=== PATIENT | male | born 1985 | race African-American/Black ===

== ENCOUNTER 2016-11-04 16:46 | Emergency (ER) | payer SELFPAY ==
[~2016-11-04] VITALS: Ht 170.2 cm; Wt 90.7 kg
[~2016-11-04 16:46] MED LIST: FAMO20TA5 PO; HYDR-971 PO; NAPR375T3 PO; ONDA4TAB10 SL; ONDA4TAB7 PO
[2016-11-04 17:05] VITALS: BP 165/80
[2016-11-04] MEDS ORDERED: IV NORMAL SALINE 1000ML BAG 1,000 ML IV SCH (17:21)
[2016-11-04] MEDS ORDERED: ONDANSETRON PF 4 MG/2 ML VIAL. IV ONE (17:30)
[2016-11-04] MEDS ORDERED: FAMOTIDINE 20 MG/2 ML VIAL IVP ONE (17:30)
[2016-11-04 17:58] LABS: BASO # 0.1 x10^3/uL (0.0-0.2); BASO % 1 % (0-3); EOS % 0 % (0-3); HEMOGLOBIN 15.7 g/dL (13.0-17.5); LYMPH # 0.5 x10^3/uL (1.0-4.8); LYMPH % 6 % (24-48); MEAN CORPUSCULAR HEMOGLOBIN 30 pg (25-35); MEAN CORPUSCULAR HGB CONC 34 g/dL (31-37); MEAN CORPUSCULAR VOLUME 89 fL (79-100); MONO % 5 % (0-9); NEUT % 88 % (31-73); PLATELET COUNT 207 x10^3/uL (140-400); RED BLOOD COUNT 5.27 x10^6/uL (4.30-5.70); RED CELL DISTRIBUTION WIDTH 14.3 % (11.5-14.5); WHITE BLOOD COUNT 9.4 x10^3/uL (4.0-11.0)
[2016-11-04 18:08] LABS: CALCIUM 9.7 mg/dL (8.5-10.1); CREATININE 1.2 mg/dL (0.7-1.3)
[2016-11-04 18:14] LABS: ALBUMIN 4.3 g/dL (3.4-5.0); TOTAL BILIRUBIN 1.2 mg/dL (0.2-1.0); TOTAL PROTEIN 8.4 g/dL (6.4-8.2)
--- NOTE | 2016-11-04 19:03 | PHYS DOC ---
Past Medical History Past Medical History: No Pertinent History Past Surgical History: No Surgical History Alcohol Use: Occasionally Drug Use: None Adult General Chief Complaint Chief Complaint: ABDOMINAL PAIN HPI HPI Patient is a 31 year old male who presents with complaint of nausea, vomiting, diarrhea, and abdominal pain that started earlier this morning. Patient states that approximately 1:00 in the morning he started having bad symptoms. Patient states that he thinks he may have eaten bad food last night before bed. Patient denies any fevers. Patient has had too numerous to count episodes of vomiting, dry heaves, and loose stools. Patient denies any blood in his stool or in his vomit. Patient states that he is having generalized dull pain in his abdomen. Patient denies any localized pain. Patient came to the emergency department as he has not been able to tolerate solids or liquids at home. Patient denies any significant past medical history. Review of Systems Review of Systems Constitutional: Denies fever or chills [] Eyes: Denies change in visual acuity, redness, or eye pain [] HENT: Denies nasal congestion or sore throat [] Respiratory: Denies cough or shortness of breath [] Cardiovascular: No additional information not addressed in HPI [] GI: Abdominal pain, nausea, vomiting, diarrhea [] : Denies dysuria or hematuria [] Musculoskeletal: Denies back pain or joint pain [] Integument: Denies rash or skin lesions [] Neurologic: Denies headache, focal weakness or sensory changes [] Current Medications Current Medications Current Medications Medications (Trade) Dose Ordered Sig/Jackson Start Time Stop Time Status Last Admin Dose Admin Famotidine (Pepcid) 20 mg 1X ONCE 11/04/16 17:30 11/04/16 17:31 DC 11/04/16 17:44 20 MG Ondansetron HCl (Zofran) 4 mg 1X ONCE 11/04/16 17:30 11/04/16 17:31 DC 11/04/16 17:44 4 MG Sodium Chloride (Iv Sodium Chloride 0.9% 1000ml Bag) 1,000 ml @ 1,000 mls/hr Q1H 11/04/16 17:21 11/04/16 18:20 DC 11/04/16 17:44 1,000 MLS/HR Allergies Allergies Allergies Coded Allergies Type Severity Reaction Last Updated Verified Penicillins Allergy Intermediate swelling 05/12/16 Yes banana Allergy Intermediate 05/12/16 Yes Physical Exam Physical Exam Constitutional: Alert, afebrile, appears ill. [] HENT: Normocephalic, atraumatic, bilateral external ears normal, oropharynx moist, no oral exudates, nose normal. [] Eyes: PERRLA, EOMI, conjunctiva normal, no discharge. [] Neck: Normal range of motion, no tenderness, supple, no stridor. [] Cardiovascular:Heart rate regular rhythm, no murmur [] Lungs & Thorax: Bilateral breath sounds clear to auscultation [] Abdomen: Bowel sounds normal, soft, generalized tenderness palpation, no guarding or rebound tenderness, no masses, no pulsatile masses. [] Skin: Warm, dry, no erythema, no rash. [] Back: No tenderness, no CVA tenderness. [] Extremities: No tenderness, no cyanosis, no clubbing, ROM intact, no edema. [] Neurologic: Alert and oriented X 3, normal motor function, normal sensory function, no focal deficits noted. [] Current Patient Data Vital Signs Vital Signs Date Time Temp Pulse Resp B/P Pulse Ox O2 Delivery O2 Flow Rate FiO2 11/04/16 17:05 98.1 70 32 165/80 99 Room Air 98.1 Lab Values Laboratory Tests Test 11/04/16 17:45 11/04/16 19:00 White Blood Count 9.4x10^3/uL (4.0-11.0) Red Blood Count 5.27x10^6/uL (4.30-5.70) Hemoglobin 15.7g/dL (13.0-17.5) Hematocrit 47.0% (39.0-53.0) Mean Corpuscular Volume 89fL (79-100) Mean Corpuscular Hemoglobin 30pg (25-35) Mean Corpuscular Hemoglobin Concent 34g/dL (31-37) Red Cell Distribution Width 14.3% (11.5-14.5) Platelet Count 207x10^3/uL (140-400) Neutrophils (%) (Auto) 88% (31-73) H Lymphocytes (%) (Auto) 6% (24-48) L Monocytes (%) (Auto) 5% (0-9) Eosinophils (%) (Auto) 0% (0-3) Basophils (%) (Auto) 1% (0-3) Neutrophils # (Auto) 8.3x10^3uL (1.8-7.7) H Lymphocytes # (Auto) 0.5x10^3/uL (1.0-4.8) L Monocytes # (Auto) 0.4x10^3/uL (0.0-1.1) Eosinophils # (Auto) 0.0x10^3/uL (0.0-0.7) Basophils # (Auto) 0.1x10^3/uL (0.0-0.2) Segmented Neutrophils % 86% (35-66) H Lymphocytes % 8% (24-48) L Monocytes % 6% (0-10) Platelet Estimate Adequate (ADEQUATE) Large Platelets Occ Ovalocytes Occ Stomatocytes Occ Sodium Level 143mmol/L (136-145) Potassium Level 4.0mmol/L (3.5-5.1) Chloride Level 99mmol/L (98-107) Carbon Dioxide Level 29mmol/L (21-32) Anion Gap 15 (6-14) H Blood Urea Nitrogen 14mg/dL (8-26) Creatinine 1.2mg/dL (0.7-1.3) Estimated GFR (Cockcroft-Gault) 86.0 BUN/Creatinine Ratio 12 (6-20) Glucose Level 128mg/dL (70-99) H Calcium Level 9.7mg/dL (8.5-10.1) Total Bilirubin 1.2mg/dL (0.2-1.0) H Aspartate Amino Transferase (AST) 26U/L (15-37) Alanine Aminotransferase (ALT) 46U/L (16-63) Alkaline Phosphatase 50U/L (46-116) Total Protein 8.4g/dL (6.4-8.2) H Albumin 4.3g/dL (3.4-5.0) Albumin/Globulin Ratio 1.0 (1.0-1.7) Lipase 76U/L (73-393) Urine Color Yellow Urine Clarity Clear Urine pH 6.5 Urine Specific Lowry >=1.030 Urine Protein 100mg/dL (NEG-TRACE) Urine Glucose (UA) Negativemg/dL (NEG) Urine Ketones (Stick) Negativemg/dL (NEG) Urine Blood Trace (NEG) Urine Nitrite Negative (NEG) Urine Bilirubin Negative (NEG) Urine Urobilinogen Dipstick 0.2mg/dL (0.2 mg/dL) Urine Leukocyte Esterase Negative (NEG) Urine RBC 3-5/HPF (0-2) Urine WBC 1-4/HPF (0-4) Urine Squamous Epithelial Cells Occ/LPF Urine Amorphous Sediment Present/HPF Urine Bacteria 0/HPF (0-FEW) Urine Mucus Mod/LPF Laboratory Tests 11/04/16 17:45 Laboratory Tests 11/04/16 17:45 EKG EKG Not performed [] Radiology/Procedures Radiology/Procedures Not performed [] Course & Med Decision Making Course & Med Decision Making Pertinent Labs and Imaging studies reviewed. (See chart for details) Patient was given IV fluids, Pepcid, and Zofran. On reevaluation, patient states his symptoms have improved at this time. Patient's symptoms appear consistent with likely gastroenteritis. The patient will be treated as outpatient with Zofran and Pepcid. Advised oral hydration with Pedialyte and to advance his diet as tolerated. Advised follow-up in 3-5 days a primary doctor if symptoms are not improving and return to emergency department for any worsening symptoms. Patient voiced understanding and in agreement with treatment plan. Dragon Disclaimer Dragon Disclaimer This electronic medical record was generated, in whole or in part, using a voice recognition dictation system. Departure Departure Impression: Primary Impression: Nausea & vomiting Additional Impression: Diarrhea Disposition: 01 HOME, SELF-CARE Condition: IMPROVED Referrals: NO PCP (PCP) Patient Instructions: Diarrhea, Nausea and Vomiting Additional Instructions: Follow-up with your primary doctor in the next 3-5 days if symptoms are not improving. Return to the emergency department for any worsening symptoms. Scripts Famotidine (Pepcid)20 Mg [id number] Mg PO BID #30 TAB Prov:ANATOLY MORTON MD 11/04/16 Ondansetron (Zofran Odt)4 Mg Tab.rapdis4 Mg PO Q8HRS PRN NAUSEA/VOMITING #15 TAB Prov:ANATOLY MORTON MD 11/04/16 Problem Qualifiers Primary Impression: Nausea & vomiting Vomiting type: unspecified Vomiting Intractability: non-intractable Qualified Code: R11.2 - Nausea with vomiting, unspecified Additional Impression: Diarrhea Diarrhea type: presumed infectious Qualified Code: A09 - Infectious gastroenteritis and colitis, unspecified ANATOLY MORTON MD Nov 04, 2016 19:03
[2016-11-04 19:11] LABS: OVALOCYTES OCC; PLT ESTIMATE ADEQUATE (ADEQUATE); STOMATOCYTES OCC
[2016-11-04 19:20] LABS: BILIRUBIN,URINE NEGATIVE (NEG); GLUCOSE,URINE NEGATIVE (NEG); NITRITE,URINE NEGATIVE (NEG); PH,URINE 6.5; PROTEIN,URINE 100 mg/dL (NEG-TRACE); UROBILINOGEN,URINE 0.2 mg/dL (0.2 mg/dL)
[2016-11-04 19:29] LABS: BACTERIA,URINE 0 /HPF (0-FEW); SQUAMOUS EPITHELIAL CELL,UR OCC /LPF
[2016-11-04] MEDS ORDERED: ONDA4TAB10 PO (19:52)
[2016-11-04] MEDS ORDERED: FAMO-63 PO (19:52)
== END 2016-11-04 19:59 | disposition home or self-care (01) ==
LOC: ER 16:46
DX: R11.2 Nausea with vomiting, unspecified (principal); R19.7 Diarrhea, unspecified; R10.84 Generalized abdominal pain; Z88.0 Allergy status to penicillin; Z91.018 Allergy to other foods
CPT/HCPCS: 36415; 80053; 81001; 83690; 85007; 85027; 96361; 96374; 96375; 99285; J2405; J7030; S0028; 99284-25

== ENCOUNTER 2019-05-14 08:22 | Emergency (ER) | payer OTHER ==
[~2019-05-14] VITALS: Ht 170.2 cm; Wt 90.7 kg
[~2019-05-14 08:22] MED LIST changes: +FAMO-63 PO; +HYDR-3164 PO; -HYDR-971 PO; +NAPR-695 PO; -NAPR375T3 PO; +ONDA4TAB10 PO
[2019-05-14 08:25] VITALS: BP 148/94
[2019-05-14] MEDS ORDERED: diphenhydrAMINE HCL 25 MG CAPSULE PO ONE (08:30)
[2019-05-14] MEDS ORDERED: methylPREDNISolone SOD SUCC PF 125 MG/2 ML VIAL. IM ONE (08:30)
[2019-05-14] MEDS ORDERED: FAMOTIDINE 20 MG TABLET. PO ONE (08:30)
--- NOTE | 2019-05-14 08:36 | PHYS DOC ---
Past Medical History Past Medical History: No Pertinent History Past Surgical History: No Surgical History Alcohol Use: Occasionally Drug Use: None Adult General Chief Complaint Chief Complaint: EYE PROBLEMS HPI HPI Patient is a 34 year old male presents to ED complaining of left eye swelling times one hour ago. 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 States he feels like something came from a [place] and caused an allergic reaction. Patient states his left eye is swollen and itchy. Patient wears glasses but states he does not have them with him. States he had protective eyewear on. States he had no traumatic injury and nothing got into his eye. States he feels no foreign body sensation. Denies vision changes, diplopia, conjunctivitis, fever, dizziness, headache, or nimisha sea/vomiting. Review of Systems Review of Systems Constitutional: Denies fever or chills [] Eyes: Denies change in visual acuity, redness, or eye pain [] HENT: Denies nasal congestion or sore throat [] Respiratory: Denies cough or shortness of breath [] Cardiovascular: No additional information not addressed in HPI [] GI: Denies abdominal pain, nausea, vomiting, bloody stools or diarrhea [] : Denies dysuria or hematuria [] Musculoskeletal: Denies back pain or joint pain [] Integument: Denies rash or skin lesions [] Neurologic: Denies headache, focal weakness or sensory changes [] All other systems were reviewed and found to be within normal limits, except as documented in this note. Current Medications Current Medications Current Medications Medications (Trade) Dose Ordered Sig/Jackson Start Time Stop Time Status Last Admin Dose Admin Diphenhydramine HCl (Benadryl) 25 mg 1X ONCE 05/14/19 08:30 05/14/19 08:34 DC 05/14/19 08:55 25 MG Famotidine (Pepcid) 20 mg 1X ONCE 05/14/19 08:30 05/14/19 08:34 DC 05/14/19 08:55 20 MG Methylprednisolone Sodium Succinate (SOLU-Medrol 125MG VIAL) 125 mg 1X ONCE 05/14/19 08:30 05/14/19 08:34 DC 05/14/19 08:55 125 MG Allergies Allergies Allergies Coded Allergies Type Severity Reaction Last Updated Verified Penicillins Allergy Intermediate swelling 05/12/16 Yes banana Allergy Intermediate 05/12/16 Yes Physical Exam Physical Exam Constitutional: Well developed, well nourished, no acute distress, non-toxic appearance. [] HENT: Normocephalic, atraumatic, bilateral external ears normal, oropharynx moist, no oral exudates, nose normal. Mild left periorbital ecchymosis. Patient does not have glasses with him. Unable to test visual acuity. Vision grossly intact per his normal.[] Eyes: PERRLA, EOMI, conjunctiva normal, no discharge. [] Neck: Normal range of motion, no tenderness, supple, no stridor. [] Cardiovascular:Heart rate regular rhythm, no murmur [] Lungs & Thorax: Bilateral breath sounds clear to auscultation [] Abdomen: Bowel sounds normal, soft, no tenderness, no masses, no pulsatile masses. [] Skin: Warm, dry, no erythema, no rash. [] Back: No tenderness, no CVA tenderness. [] Extremities: No tenderness, no cyanosis, no clubbing, ROM intact, no edema. [] Neurologic: Alert and oriented X 3, normal motor function, normal sensory function, no focal deficits noted. [] Psychologic: Affect normal, judgement normal, mood normal. [] Current Patient Data Vital Signs Vital Signs Date Time Temp Pulse Resp B/P (MAP) Pulse Ox O2 Delivery O2 Flow Rate FiO2 05/14/19 08:25 98.6 62 18 148/94 (112) 98 Room Air 98.6 EKG EKG [] Radiology/Procedures Radiology/Procedures [] Course & Med Decision Making Course & Med Decision Making Pertinent Labs and Imaging studies reviewed. (See chart for details) []Patient has left eye periorbital swelling. Patient had an allergic exposure. Patient given Solu-Medrol, Benadryl and Pepcid in the ED. Patient states he's feeling much better. Swelling and itching improved. Discussed symptomatic treatment and [id number] medications. Discuss follow-up and reasons to return to the ED. Patient understands and agrees with plan. Dragon Disclaimer Dragon Disclaimer This electronic medical record was generated, in whole or in part, using a voice recognition dictation system. Departure Departure Impression: Primary Impression: Allergic reaction Disposition: 01 HOME, SELF-CARE Condition: IMPROVED Referrals: NO PCP (PCP) AGUILAR HOLDEN MD Patient Instructions: Allergies, Generic JOSTIN CARD May 14, 2019 08:36
== END 2019-05-14 10:02 | disposition home or self-care (01) ==
LOC: ER 08:22
DX: T78.40XA Allergy, unspecified, initial encounter (principal); R58 Hemorrhage, not elsewhere classified; Z88.0 Allergy status to penicillin; Z91.018 Allergy to other foods; X58.XXXA Exposure to other specified factors, initial encounter
CPT/HCPCS: 96372; 99283; J2930; Q0163

== ENCOUNTER 2020-04-23 13:23 | Emergency (ER) | payer SELFPAY ==
[~2020-04-23] VITALS: Ht 170.2 cm; Wt 90.0 kg
[2020-04-23 16:45] VITALS: BP 184/114
[2020-04-23] MEDS ORDERED: DIPH25TA64 PO (17:10)
[2020-04-23] MEDS ORDERED: METH4TAB2 PO (17:10)
--- NOTE | 2020-04-23 17:13 | PHYS DOC ---
Past Medical History Past Medical History: No Pertinent History (AYESHA VEGA APRN) Past Surgical History: No Surgical History (AYESHA VEGA APRN) Smoking Status: Current Every Day Smoker Alcohol Use: Occasionally Drug Use: None (AYESHA VEGA APRN) General Adult EDM: Chief Complaint: INSECT BITE HPI: HPI: Patient is a 35 year old male who presents with 3 days of blistery burning rash to left scalp and goes down the side of his face down to the lutheran. 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 He states he could have gotten into something while landscaping and had allergic reaction. He has been using hydrocortisone cream on the area. He states this is not been taking it away. Patient rates his pain a 5 out of 10. He denies any itching. There is no drainage, cellulitis, swelling, crusting. Patient denies fever, nausea, vomiting, diarrhea, body aches, abdominal pain, dizziness, vision changes, chest pain, shortness of breath, cough. (AYESHA VEGA ROLLER MECHANIC) Review of Systems: Review of Systems: Constitutional: Denies fever or chills. [] Eyes: Denies change in visual acuity. [] HENT: Denies nasal congestion or sore throat. [] Respiratory: Denies cough or shortness of breath. [] Cardiovascular: Denies chest pain or edema. [] GI: Denies abdominal pain, nausea, vomiting, bloody stools or diarrhea. [] : Denies dysuria. [] Musculoskeletal: Denies back pain or joint pain. [] Integument: Left scalp rash that goes down to left lutheran area rash. [] Neurologic: Left scalp headache, denies focal weakness or sensory changes. [] Endocrine: Denies polyuria or polydipsia. [] Lymphatic: Denies swollen glands. [] Psychiatric: Denies depression or anxiety. [] (AYESHA VEGA APRN) Heart Score: Risk Factors: Risk Factors: DM, Current or recent (<one month) smoker, HTN, HLP, family history of CAD, obesity. Risk Scores: Score 0 - 3: 2.5% MACE over next 6 weeks - Discharge Home Score 4 - 6: 20.3% MACE over next 6 weeks - Admit for Clinical Observation Score 7 - 10: 72.7% MACE over next 6 weeks - Early Invasive Strategies ([facility] ROLLER MECHANIC) Allergies: Allergies: Allergies Coded Allergies Type Severity Reaction Last Updated Verified Penicillins Allergy Intermediate swelling 05/12/16 Yes banana Allergy Intermediate 05/12/16 Yes ([facility] ROLLER MECHANIC) Physical Exam: PE: Constitutional: Well developed, well nourished, no acute distress, non-toxic appearance. [] HENT: Normocephalic, atraumatic, bilateral external ears normal, oropharynx moist, no oral exudates, nose normal. [] Eyes: PERRLA, EOMI, conjunctiva normal, no discharge. [] Neck: Normal range of motion, no tenderness, supple, no stridor. [] Cardiovascular:Heart rate regular rhythm, no murmur [] Lungs & Thorax: Bilateral breath sounds clear to auscultation [] Abdomen: Bowel sounds normal, soft, no tenderness, no masses, no pulsatile masses. [] Skin: Warm, dry, no erythema, left scalp going down to left lutheran blistering dermatitis rash. [] Back: No tenderness, no CVA tenderness. [] Extremities: No tenderness, no cyanosis, no clubbing, ROM intact, no edema. [] Neurologic: Alert and oriented X 3, normal motor function, normal sensory function, no focal deficits noted. [] Psychologic: Affect normal, judgement normal, mood normal. [] ([facility]) Current Patient Data: Vital Signs: Vital Signs Date Time Temp Pulse Resp B/P (MAP) Pulse Ox O2 Delivery O2 Flow Rate FiO2 04/23/20 16:45 98.4 58 14 184/114 (137) 99 Room Air 98.4 [facility] EKG: EKG: [] [facility]) Radiology/Procedures: Radiology/Procedures: [] [facility]) Course & Med Decision Making: Course & Med Decision Making Pertinent Labs and Imaging studies reviewed. (See chart for details) See HPI. Alert and oriented. Speaks in full complete sentences. PERRLA. Ambulatory with a steady gait. Patient states at times he will have a headache. Patient is given a Medrol Dosepak and told to take Benadryl. Patient can continue using the hydrocortisone cream. [] (AYESHA VEGA APRN) Dragon Disclaimer: Dragon Disclaimer: This electronic medical record was generated, in whole or in part, using a voice recognition dictation system. (AYESHA VEGA APRN) Departure Departure Impression: Primary Impression: Contact dermatitis Qualified Codes: L25.9 - Unspecified contact dermatitis, unspecified cause Disposition: HOME, SELF-CARE Condition: STABLE Referrals: NO PCP (PCP) Patient Instructions: Contact Dermatitis Additional Instructions: Follow-up with your primary care physician as needed. Take medication as prescribed. Scripts Diphenhydramine Hcl (BENADRYL ALLERGY) 25 Mg Tablet 2 TAB PO Q6HRS, #24 TAB 0 Refills Prov: AYESHA VEGA APRN 04/23/20 Methylprednisolone (MEDROL) 4 Mg Tab.ds.pk 1 PKG PO UD, #1 PKG Prov: AYESHA VEGA APRN 04/23/20 Justicifation of Admission Dx: Justifications for Admission: Justification of Admission Dx: N/A (AYESHA VEGA APRN) Attending Signature Attending Signature I have reviewed the PA/HARB[employer] DEPARTMENT MANAGER's note and plan of care. I was available for consultation as needed at all times during the patient's visit in the emergency department. I agree with the clinical impression, plan and disposition. (AGUILAR ORR DO) AYESHA VEGA APRN Apr 23, 2020 17:13 AGUILAR ORR DO Apr 25, 2020 09:22
== END 2020-04-23 17:42 | disposition home or self-care (01) ==
LOC: ER 13:23
DX: L25.9 Unspecified contact dermatitis, unspecified cause (principal); F17.200 Nicotine dependence, unspecified, uncomplicated; Z88.0 Allergy status to penicillin; Z91.018 Allergy to other foods
CPT/HCPCS: 99283